=== PATIENT | female | born 1945 | race African-American/Black ===

== ENCOUNTER 2023-12-02 11:45 | Outpatient (CLI) | payer OTHER | END 2023-12-02 20:43 | disposition home or self-care (01) | LOC: SRD 11:45 | DX: R06.00 Dyspnea, unspecified (principal); M47.814 Spondylosis without myelopathy or radiculopathy, thoracic region | CPT/HCPCS: 71046-TC ==

== ENCOUNTER 2024-04-19 12:09 | Outpatient (CLI) | payer OTHER | END 2024-04-19 19:12 | disposition home or self-care (01) | LOC: SUS 12:09 | PROVIDERS: ATTEND Family Medicine | DX: N63.20 Unspecified lump in the left breast, unspecified quadrant (principal); N64.9 Disorder of breast, unspecified | CPT/HCPCS: 76641 ==